=== PATIENT | male | born 1995 | race African-American/Black ===

== ENCOUNTER 2022-04-21 11:02 | Emergency (ER) | payer SELFPAY ==
[~2022-04-21] VITALS: Ht 180.3 cm; Wt 99.8 kg
[2022-04-21] MEDS ORDERED: ceFAZolin 1GM/50ML 50 ML IV ONE (12:15)
[2022-04-21 14:08] LABS: Eosinophils # (auto) 0 10 ^3/uL (0-0.8); Mean Corpuscular Hgb Conc. 33.1 g/dL (32.0-36.0); Nucleated Red Blood Cells % 0.1 %
[2022-04-21 14:10] LABS: Basophils # (auto) 0 10 ^3/uL (0-0.2); Basophils % (auto) 0.2 % (0.0-2.0); Hematocrit 35.1 % (41.0-53.0); Hemoglobin 11.6 g/dL (13.5-17.5); Lymphocytes # (auto) 2.5 10 ^3/uL (0.4-5.4); Lymphocytes % (auto) 12.6 % (10.0-50.0); Mean Corpuscular Hemoglobin 25.3 pg (28.0-32.0); Mean Corpuscular Volume 76.5 fL (80.0-100.0); Monocytes # (auto) 1.5 10 ^3/uL (0-1.3); Monocytes % (auto) 7.6 % (0.0-12.0); Neutrophils # (auto) 15.7 10 ^3/uL (1.6-8.6); Neutrophils % (auto) 79.6 % (37.0-80.0); Red Blood Cells 4.58 10^6/uL (4.5-5.90); White Blood Cell 19.8 10^3/uL (4.4-10.8)
[2022-04-21 14:21] LABS: Albumin 3.7 g/dL (3.4-5.0); BUN/Creatinine Ratio 9.6; Potassium 3.8 mmol/L (3.5-5.1)
[2022-04-21 14:24] LABS: Bilirubin, Total 0.9 mg/dL (0.2-1.0); Total Protein 7.2 g/dL (6.4-8.2)
[2022-04-21 14:26] LABS: INR 1.1 (0.9-1.15); Partial Thromboplastin Time 25.1 sec (23.6-33.0)
[2022-04-21 15:23] VITALS: BP 132/74
== END 2022-04-21 16:50 | disposition short-term general hospital (02) ==
LOC: EDBD 11:02 → ER 11:02
DX: S62.394A Other fracture of fourth metacarpal bone, right hand, initial encounter for closed fracture (principal); F12.10 Cannabis abuse, uncomplicated; Y04.8XXA Assault by other bodily force, initial encounter; Y93.89 Activity, other specified; Y92.9 Unspecified place or not applicable; Y99.8 Other external cause status
CPT/HCPCS: 29125; 36415; 73130; 80053; 85025; 85610; 85730